=== PATIENT | male | born 1965 | race Caucasian/White ===

== ENCOUNTER 2021-02-21 11:19 | Inpatient (IN) | payer OTHER ==
[~2021-02-21] VITALS: Ht 152.4 cm; Wt 120.2 kg
[2021-02-21 11:31] VITALS: BP 116/77
[2021-02-21] MEDS ORDERED: BP MED PO (11:37)
[2021-02-21 12:11] LABS: BE 2.7 mmol/L (-2 to +3); PCO2 36.6 mmHg (35.0-45.0); pH 7.472 (7.340-7.450)
[2021-02-21 12:13] LABS: PO2 55.8 mmHg (75.0-100.0)
[2021-02-21 12:49] LABS: ABSOLUTE LYMPHOCYTES 0.6 thou/uL (0.8-5.3); ABSOLUTE MONOCYTES 0.3 thou/uL (0.0-1.2); ABSOLUTE NEUTROPHILS 4.2 thou/uL (1.6-8.1); BASOPHILS 0.3 %; HEMATOCRIT 41.3 % (42.0-52.0); HEMOGLOBIN 14.1 gm/dL (14.0-18.0); LYMPHOCYTES 12.5 %; MCH 31.7 pg (26.0-34.0); MCHC 34.2 g/dL (28.0-37.0); MCV 92.7 fL (80.0-100.0); MONOCYTES 5.7 %; MPV 7.9 fl. (7.2-11.1); NUCLEATED RBCS 0 /100WBC; PLATELET COUNT* 160 thou/uL (150-400); POLYS 81.5 %; RBC 4.45 mil/uL (4.50-6.00); RDW-CV 13.9 % (10.5-14.5); WBC 5.2 thou/uL (4.0-11.0)
[2021-02-21 15:26] LABS: ALBUMIN 3.5 g/dL (3.4-5.0); CALCIUM 7.7 mg/dL (8.5-10.1); CREATININE 1.3 mg/dL (0.6-1.3); POTASSIUM 4.4 mmol/L (3.5-5.1); TOTAL BILIRUBIN 0.4 mg/dL (<0.1-1.0); TOTAL PROTEIN 7.2 g/dL (6.4-8.2)
--- NOTE | 2021-02-21 16:17 | NUR ---
PT INFORMED COSMETICS COUNTER MANAGER THAT HE HAS CONVULSIONS WITH CONTRAST DYE. PT WILL NOT HAVE CTA PER DR. BURT'S VERBAL ORDERS. CONTRAST DYE HAS BEEN ADDED TO THE PATIENT'S ALLERGY LIST.
[2021-02-21 16:22] VITALS: BP 123/63
[2021-02-21 20:00] VITALS: BP 137/78
--- NOTE | 2021-02-21 20:39 | CON ---
[address] [address] CONSULTATION Name: GEO RENTERIA Audrey Room: [address] IN .R.#: [id number] Admission: 02/21/21 Attend Phys: Myriam Michael MD Discharge: Date of : 67 Report #: [id number] THIS REPORT FOR: cc: [facility] - Clinic physician unknown [facility] - Clinic physician unknown Flo Alberts MD ~ DATE OF CONSULTATION: 02/21/2021 REQUESTING PHYSICIAN: Myriam Michael MD INDICATION FOR CONSULTATION: COVID-19 HISTORY OF PRESENT ILLNESS: A 55-year-old gentleman with past medical history includes a history of hypertension. He also is reported to be an active smoker. He has now presented with respiratory complaints of several days' duration. He reports having had increasing shortness of breath as well as a cough without sputum production. Has had a decrease in appetite, also reduction in smell and taste. He had a COVID test performed at [facility] and reports that he was called by [facility] and told that the test came back positive. He does not report increasing swelling of lower extremities or calf pain. He does state that he has been febrile. He does report diaphoresis and weakness as well. Currently, the patient is requiring 2 liters nasal cannula to maintain O2 saturation around 92%. REVIEW OF SYSTEMS: The patient's review of systems for 12 points is negative except as mentioned above. PAST MEDICAL HISTORY: Hypertension. SOCIAL HISTORY: He has an extensive history of smoking, still smokes. No known history of heavy alcohol use or illegal drug use; however, he does state that he uses alcohol. ALLERGIES: HE REPORTS HAVING HAD CONVULSIONS WITH IV DYE. ALSO SULFONAMIDE ANTIBIOTICS. IMMUNIZATION HISTORY: He has not been vaccinated for COVID-19. FAMILY HISTORY: No pertinent family history. PHYSICAL EXAMINATION: GENERAL: He is alert, awake and oriented. He did appear to be short of breath at rest. VITAL SIGNS: Has a pulse of 77 and a blood pressure of 123/63. He is saturating 92%. He is on 2 liters nasal cannula. Respiratory rate is 19[place] [address] CONSULTATION Name: GEO RENTERIA Room: [address]#: [id number] Admission: 02/21/21 Attend Phys: Myriam Michael MD Discharge: Date of : 67 Report #: [id number] temperature was 37.1. HEENT: Head is normocephalic and atraumatic. NECK: Does not show raised JVP. CHEST: Breath sounds are bilaterally equal, but decreased. Expirations are prolonged. HEART: Regular. There is no murmur. ABDOMEN: Soft and nontender. EXTREMITIES: Lower extremities show no edema and no calf tenderness. SKIN: Dry and intact. NEUROLOGIC: Moves all extremities bilaterally equally and spontaneously with no focal deficit identified. LABORATORY DATA: The patient's lab work is in [place] and this is reviewed. COVID-19 antigen came back negative, but PCR is pending. He does have mild elevation in creatinine to 1.3. ASSESSMENT AND PLAN: 1. Acute hypoxemic respiratory failure secondary to COVID-19 and bronchospasm. We will titrate oxygen. I did not order BiPAP for now; however, we will have a low threshold of adding BiPAP while asleep if his respiratory status declines. 2. COVID-19. The patient's chest x-ray is reviewed, shows extensive bilateral infiltrates consistent with COVID-19. I will continue dexamethasone. See discussion regarding dexamethasone dose below. He does have mild elevation in LFTs and creatinine, still potential benefit of giving him remdesivir appears to outweigh risks and therefore, we will proceed as already recommended by primary service. We will also considering extensive bilateral infiltrates and risk of developing acute respiratory distress syndrome recommend that we give him Actemra as well. 3. Bronchospasm/possible underlying chronic obstructive pulmonary disease. He appears bronchospastic on my exam. Already received 125 mg of Solu-Medrol. For now, I have ordered 8 mg of dexamethasone b.i.d. and DuoNeb. May need to increase steroid further. Watch blood glucoses. 4. Pulmonary infiltrates, primarily secondary to COVID-19. I would agree with covering for secondary bacterial infections as well. He is on doxycycline and ceftriaxone. We will continue the same. More cultures and serologies are ordered. 5. Elevated D-dimer. The patient REPORTS AN ALLERGY TO IV CONTRAST DYE. There is also mild elevation in creatinine. Therefore, for now, I have ordered a perfusion scan as well as venous Dopplers and echo and held off on ordering a CTA chest. 6. Mild renal insufficiency, unknown whether this is acute or chronic. 7. Gastrointestinal prophylaxis. We will give him Protonix. 8. Clostridium difficile prophylaxis, Lactinex. 9. Gastrointestinal prophylaxis, Pepcid. [place] [address] [place] [address] CONSULTATION Name: GEO RENTERIA Room: [address] IN .R.#: [id number] Admission: 02/21/21 Attend Phys: Myriam Michael MD Discharge: Date of : 67 Report #: [id number] Thanks for this consultation. <ELECTRONICALLY SIGNED> By: Flo Alberts MD 02/21/21 2039 1538 1936Amimi Alberts MD /nt
[2021-02-21 21:57] LABS: INFLUENZA A ANTIGEN Negative (Negative); INFLUENZA B ANTIGEN Negative (Negative)
[2021-02-22 02:18] VITALS: BP 118/60
[2021-02-22 04:29] LABS: ABSOLUTE LYMPHOCYTES 0.5 thou/uL (0.8-5.3); ABSOLUTE MONOCYTES 0.2 thou/uL (0.0-1.2); ABSOLUTE NEUTROPHILS 3.8 thou/uL (1.6-8.1); BASOPHILS 0.1 %; HEMATOCRIT 37.3 % (42.0-52.0); HEMOGLOBIN 12.7 gm/dL (14.0-18.0); LYMPHOCYTES 10.5 %; MCH 31.5 pg (26.0-34.0); MCHC 34.2 g/dL (28.0-37.0); MCV 92.3 fL (80.0-100.0); MONOCYTES 5.1 %; MPV 8.3 fl. (7.2-11.1); NUCLEATED RBCS 0 /100WBC; PLATELET COUNT* 175 thou/uL (150-400); POLYS 84.3 %; RBC 4.04 mil/uL (4.50-6.00); RDW-CV 13.8 % (10.5-14.5); WBC 4.5 thou/uL (4.0-11.0)
[2021-02-22 05:01] LABS: ALBUMIN 3.1 g/dL (3.4-5.0); CALCIUM 7.9 mg/dL (8.5-10.1); CREATININE 1.1 mg/dL (0.6-1.3); MAGNESIUM 2.2 mg/dL (1.8-2.4); POTASSIUM 4.5 mmol/L (3.5-5.1); TOTAL BILIRUBIN 0.3 mg/dL (<0.1-1.0); TOTAL PROTEIN 6.5 g/dL (6.4-8.2)
[2021-02-22 06:00] VITALS: BP 125/74
--- NOTE | 2021-02-22 07:37 | NUR ---
ASSUMED CARE OF PT AFTER REPORT AT 1930. PT A&OX4. VSS. PHYSICAL ASSESSMENT COMPLETED AND CHARTED. PT O2 SAT DROPPED TO 78-85% GOING TO THE RESTROOM-INCREASED O2 TO 10L HFNC. PT TRACING SR ON TELE. MRSA & FLU SWAB, UA AND SPUTUM SPECIMEN SENT TO LAB. CALL LIGHT WITHIN REACH.
[2021-02-22 08:00] VITALS: BP 150/79
--- NOTE | 2021-02-22 08:49 | EKG ---
[place] [address] ELECTROCARDIOGRAM REPORT Name: GEO RENTERIA Room: [address] ADM IN .R.#: [id number] Admission: 02/21/21 Attend Phys: Myriam Michael, Discharge: Date of : 67 Date of Service: 02/21/21 1203 Report #: [id number] THIS REPORT FOR: //name// [facility] ED Test Date: 2021-02-21 Test Time: 12:03:25 Pat Name: GEO RENTERIA Department: Room: [facility] Gender: M Patient Observer: : 1965 Requested By: Gregg Modi Order Number: [id number] MD: Lacho Lopez Measurements Intervals [place]om Rate: 79 P: 34 UT: 155 QRS: -35 QRSD: 103 T: 20 QT: 366 QTc: 420 Interpretive Statements Sinus rhythm Left anterior fascicular block no previous ECG available for comparison Electronically Signed On 02-22-2021 8:48:33 FREIGHT AGENT by Lacho Lopez [email or web address] <ELECTRONICALLY SIGNED> By: Lacho Lopez MD, FACC 02/22/21 0848 1203 1203 Lacho Lopez MD, [facility] /EPI
--- NOTE | 2021-02-22 08:55 | NUR ---
Infection Control: Per [facility] patient has a positive Covid PCR test from 02/16/21.
[2021-02-22] MEDS ORDERED: ZIAC 5-6.25 MG1 EACH PO (10:04)
[2021-02-22 12:00] VITALS: BP 126/74
--- NOTE | 2021-02-22 12:56 | 2DMMODE ---
[place] [address] 2 D/M-MODE ECHOCARDIOGRAM Name: GEO RENTERIA Room: [address] IN [facility] [place] [facility]#: [id number] Admission: 02/21/21 Attend Phys: Myriam Michael, Discharge: Date of : 67 Date of Service: 02/22/21 1256 Report #: [id number] THIS REPORT FOR: cc: [facility] - Clinic physician unknown [facility] - Clinic physician unknown Lamont Machado MD [facility] ~ APPROVED REPORT Study performed: 02/22/2021 11:06:54 EXAM: Comprehensive 2D, Doppler, and color-flow Echocardiogram Patient Location: In-Patient Room #: [facility] Status: routine BSA: 2.25 HR: 87 bpm BP: 125/74 mmHg Rhythm: NSR Other Information Study Quality: Good Indications Dyspnea 2D Dimensions IVSd: 9.83 (7-11mm) LVOT Diam: 21.68 (18-24mm) LVDd: 50.47 mm PWd: 9.61 (7-11mm) Ascending Ao: 31.84 (22-36mm) LVDs: 24.64 (25-40mm) Aortic Root: 33.24 mm Volumes Left Atrial Volume (Systole) LA ESV Index: 28.40 mL/m2 Aortic Valve AoV Peak Vaughn.: 2.54 m/s AO Peak Gr.: 25.85 mmHg LVOT Max P.95 mmHg AO Mean Gr.: 15.22 mmHg LVOT Mean P.34 mmHg LVOT Max V: 1.50 m/s AO V2 VTI: 44.87 cm LVOT Mean V: 0.95 m/s ROXY (VTI): 2.36 cm2 LVOT V1 VTI: 28.67 [place] [address] 2 D/M-MODE ECHOCARDIOGRAM Name: GEO RENTERIA Room: [address] IN ..#: [id number] Admission: 02/21/21 Attend Phys: Myriam Michael, Discharge: Date of : 67 Date of Service: 02/22/21 1256 Report #: [id number] Mitral Valve E/A Ratio: 1.10 MV Decel. Time: 100.55 ms MV E Max Vaughn.: 0.99 m/s MV PHT: 29.16 ms MVA (PHT): 7.54 cm2 TDI E/Lateral E': 6.60 E/Medial E': 8.25 Medial E' Vaughn.: 0.12 m/s Lateral E' Vaughn.: 0.15 m/s Pulmonary Valve PV Peak Vaughn.: 1.53 m/s PV Peak Gr.: 9.34 mmHg Left Ventricle The left ventricle is normal size. There is normal LV segmental wall motion. There is normal left ventricular wall thickness. Left ventricular systolic function is normal. The left ventricular ejection fraction is within the normal range. LVEF is 65%. The left ventricular diastolic function is normal. Right Ventricle The right ventricle is normal size. The right ventricular systolic function is normal. Atria The left atrium size is normal. The right atrium size is normal. Aortic Valve The aortic valve is normal in structure. No aortic regurgitation is present. There is no aortic valvular stenosis. Mitral Valve The mitral valve is normal in structure. There is no mitral valve regurgitation noted. No evidence of mitral valve stenosis. Tricuspid Valve The tricuspid valve is normal in structure. Trace tricuspid regurgitation. Unable to assess PA pressure. Pulmonic Valve The pulmonary valve is normal in structure. There is no pulmonic [place] [address] 2 D/M-MODE ECHOCARDIOGRAM Name: SHERKAITYGEO Vent[place] Room: [address] IN [facility] [place] [facility]#: [id number] Admission: 02/21/21 Attend Phys: Myriam Michael, Discharge: Date of : 67 Date of Service: 02/22/21 1256 Report #: [id number] Great Vessels The aortic root is normal in size. IVC is not well visualized. Pericardium There is no pericardial effusion. <Conclusion> The left ventricle is normal size. There is normal left ventricular wall thickness. Left ventricular systolic function is normal. The left ventricular ejection fraction is within the normal range. LVEF is 65%. The right ventricle is normal size. The left atrium size is normal. The aortic valve is normal in structure. The mitral valve is normal in structure. The tricuspid valve is normal in structure. There is no pericardial effusion. There is normal LV segmental wall motion. <ELECTRONICALLY SIGNED> By: Lamont Machado MD, [facility] 02/22/21 1256 1256 1256 Lamont Machado MD, FACC /INF
[2021-02-22 15:40] VITALS: BP 109/61
--- NOTE | 2021-02-22 16:15 | NUR ---
Case Management Assessment Assessment completed via phone with pt's authorized contact (Tolu Ohara - [phone]). Pt resides alone in home. Pt has no history of ADL or DME support. Pt has no history of skilled, rehab, or HH services. CM to continue to follow pt.
[2021-02-22 20:00] VITALS: BP 134/64
[2021-02-23 00:03] VITALS: BP 129/64
[2021-02-23 02:06] LABS: GLYCOHEMOGLOBIN (HGB A1C) 6.5 % (4.8-5.6)
[2021-02-23 04:20] VITALS: BP 132/65
[2021-02-23 04:22] LABS: ABSOLUTE LYMPHOCYTES 0.7 thou/uL (0.8-5.3); ABSOLUTE MONOCYTES 0.7 thou/uL (0.0-1.2); ABSOLUTE NEUTROPHILS 6.2 thou/uL (1.6-8.1); BASOPHILS 0.1 %; EOSINOPHILS 0.1 %; HEMATOCRIT 38.5 % (42.0-52.0); HEMOGLOBIN 12.9 gm/dL (14.0-18.0); LYMPHOCYTES 8.8 %; MCH 31.4 pg (26.0-34.0); MCHC 33.5 g/dL (28.0-37.0); MCV 93.6 fL (80.0-100.0); MONOCYTES 8.8 %; MPV 8.2 fl. (7.2-11.1); NUCLEATED RBCS 0 /100WBC; PLATELET COUNT* 208 thou/uL (150-400); POLYS 82.2 %; RBC 4.11 mil/uL (4.50-6.00); RDW-CV 13.8 % (10.5-14.5); WBC 7.6 thou/uL (4.0-11.0)
[2021-02-23 04:37] LABS: ALBUMIN 3.1 g/dL (3.4-5.0); CALCIUM 8.1 mg/dL (8.5-10.1); CREATININE 1.1 mg/dL (0.6-1.3); MAGNESIUM 2.4 mg/dL (1.8-2.4); POTASSIUM 4.3 mmol/L (3.5-5.1); TOTAL BILIRUBIN 0.3 mg/dL (<0.1-1.0); TOTAL PROTEIN 6.5 g/dL (6.4-8.2)
[2021-02-23 09:30] VITALS: BP 127/48
[2021-02-23 12:00] VITALS: BP 127/68
[2021-02-23 17:00] VITALS: BP 127/70
--- NOTE | 2021-02-23 17:15 | NUR ---
CM FOLLOWUP PT NOT YET MEDICALLY CLEAR TO DISCHARGE. CM TO CONTINUE TO FOLLOW PT.
[2021-02-23 20:00] VITALS: BP 118/61
[2021-02-24 00:52] VITALS: BP 110/60
[2021-02-24 04:00] VITALS: BP 127/72
[2021-02-24 07:26] LABS: HEMATOCRIT 38.3 % (42.0-52.0); HEMOGLOBIN 12.8 gm/dL (14.0-18.0); MCH 31.5 pg (26.0-34.0); MCHC 33.5 g/dL (28.0-37.0); MCV 94.1 fL (80.0-100.0); MPV 8.4 fl. (7.2-11.1); RBC 4.07 mil/uL (4.50-6.00); RDW-CV 13.8 % (10.5-14.5); WBC 8.6 thou/uL (4.0-11.0)
[2021-02-24 07:34] LABS: MAGNESIUM 2.3 mg/dL (1.8-2.4); POTASSIUM 4.7 mmol/L (3.5-5.1); TOTAL BILIRUBIN 0.4 mg/dL (<0.1-1.0); TOTAL PROTEIN 6.2 g/dL (6.4-8.2)
[2021-02-24 10:00] VITALS: BP 140/82
[2021-02-24 12:27] VITALS: BP 107/72
--- NOTE | 2021-02-24 13:20 | NUR ---
Nutrition: Pt admitted with COVID. Assessed for high BMI. Wt: 265#. Pt is on 2gm Na diet - no po intake recorded. Has fluid overload. SOA better, has tremors. Meds: insulin, albuterol, remdesivir, L. acidophilus. BG 135, albumin 3. Encourage good meal intake. No other nutrition interventions needed at this time. Low nutrition risk.
[2021-02-24 16:15] VITALS: BP 112/64
--- NOTE | 2021-02-24 17:39 | NUR ---
CM FOLLOWUP PT NOT MEDICALLY CLEAR TO DC. CM TO CONTINUE TO FOLLOW PT FOR DC PLANNING SERVICES.
--- NOTE | 2021-02-24 17:40 | NUR ---
CM ASSESSMENT ASSESSMENT COMPLETED WITH PT. PT LIVES WITH IN A SINGLE STORY HOME. PT WILL NEED TRANSPORTATION ASSISTANCE UPON DISCHARGE. PT INDEPENDENT WITH ADLS. PT USES A CANE. PT HAS NO HISTORY OF HH OR SKILLED SERVICES. PT HAS A HISTORY OF REHAB SERVICES BUT UNABLE TO REPROT LOCATION OR TIMEFRAME. PT TO BE [place] WITH HH UPON DISCHARGE.
[2021-02-24 21:35] VITALS: BP 150/70
[2021-02-25 00:50] VITALS: BP 124/71
[2021-02-25 04:35] VITALS: BP 138/74
[2021-02-25 04:59] LABS: HEMATOCRIT 38.8 % (42.0-52.0); HEMOGLOBIN 12.9 gm/dL (14.0-18.0); MCH 31.3 pg (26.0-34.0); MCHC 33.2 g/dL (28.0-37.0); MCV 94.3 fL (80.0-100.0); MPV 8.5 fl. (7.2-11.1); RBC 4.11 mil/uL (4.50-6.00); RDW-CV 14.1 % (10.5-14.5)
[2021-02-25 05:18] LABS: CREATININE 1.1 mg/dL (0.6-1.3); MAGNESIUM 2.3 mg/dL (1.8-2.4); POTASSIUM 4.3 mmol/L (3.5-5.1); TOTAL BILIRUBIN 0.4 mg/dL (<0.1-1.0)
--- NOTE | 2021-02-25 05:19 | NUR ---
PT AO X4 AMBULATING IN THE ROOM WITH 2L PER NC. DENIES PAIN, MEDS ADMINISTERED PER MAR WITHOUT PROBLEM. NSR ON TELEMONITOR. PT SAT WAS 88-89 AND OXYGEN INCREASED TO 3L TO OBTAIN <90% LABS DRAWN FROM PICC WITHOUT PROBLEM. CALL LIGHT IN REACH FOR PT SAFETY
[2021-02-25 08:00] VITALS: BP 124/69
[2021-02-25 12:12] VITALS: BP 133/76
[2021-02-25 16:00] VITALS: BP 125/69
--- NOTE | 2021-02-25 17:55 | NUR ---
CM FOLLOWUP PT NOT MEDICALLY CLEAR TO DC. POSSIBLE DC HOME ON 02/28/21. NO CM NEEDS AT THIS TIME.
--- NOTE | 2021-02-25 17:57 | NUR ---
CM FOLLOWUP PT NOT MEDICALLY CLEAR TO DC. POSSIBLE DC ON 02/28/21.PT WILL NEED SAT/EX OXYGEN TEST ON DISCHARGE DATE TO DETERMINE O2 NEEDS. CM TO FOLLOW.
[2021-02-25 20:50] VITALS: BP 131/76
[2021-02-26] VITALS: BP 140/79
[2021-02-26 04:00] VITALS: BP 149/86
[2021-02-26 04:16] LABS: HEMOGLOBIN 13.1 gm/dL (14.0-18.0); MCH 31.5 pg (26.0-34.0); MCHC 33.5 g/dL (28.0-37.0); MCV 94.2 fL (80.0-100.0); MPV 8.4 fl. (7.2-11.1); NUCLEATED RBCS 0 /100WBC; PLATELET COUNT* 272 thou/uL (150-400); RBC 4.14 mil/uL (4.50-6.00); RDW-CV 13.7 % (10.5-14.5); WBC 8.2 thou/uL (4.0-11.0)
[2021-02-26 04:46] LABS: ALBUMIN 3.1 g/dL (3.4-5.0); CALCIUM 8.1 mg/dL (8.5-10.1); MAGNESIUM 2.3 mg/dL (1.8-2.4); POTASSIUM 4.2 mmol/L (3.5-5.1); TOTAL BILIRUBIN 0.5 mg/dL (<0.1-1.0); TOTAL PROTEIN 6.1 g/dL (6.4-8.2)
--- NOTE | 2021-02-26 05:03 | NUR ---
PT ALERT AND ORIENTED, UP AD YAN, 5L-O2. HAD SOME ANXIETY OVERNIGHT WITH COUGH AND SOB. ATIVAN GIVEN. HE WAS ABLE TO REST WELL AFTER IN HIS CHAIR. HE IS CONTINENT, BEEN NPO SINCE MIDNIGHT. COMPLIANT WITH CARE. LABS REVIEWED.
[2021-02-26 05:45] LABS: ABSOLUTE MONOCYTES 0.3 thou/uL (0.0-1.2); ABSOLUTE NEUTROPHILS 5.9 thou/uL (1.6-8.1); PLATELET ESTIMATE ADEQUATE
[2021-02-26 07:36] VITALS: BP 125/77
[2021-02-26 12:00] VITALS: BP 135/81
[2021-02-26 16:29] VITALS: BP 131/86
[2021-02-26 20:00] VITALS: BP 121/79
[2021-02-27] VITALS: BP 129/78
[2021-02-27 02:22] LABS: POLYS 75.7 %; RDW-CV 13.8 % (10.5-14.5)
[2021-02-27 02:31] LABS: ABSOLUTE EOSINOPHILS 0.3 thou/uL (0.0-0.7); ABSOLUTE LYMPHOCYTES 1.4 thou/uL (0.8-5.3); ABSOLUTE MONOCYTES 0.5 thou/uL (0.0-1.2); ABSOLUTE NEUTROPHILS 6.9 thou/uL (1.6-8.1); BASOPHILS 0.3 %; EOSINOPHILS 3.1 %; HEMATOCRIT 40.3 % (42.0-52.0); HEMOGLOBIN 13.6 gm/dL (14.0-18.0); LYMPHOCYTES 15.4 %; MCH 31.4 pg (26.0-34.0); MCHC 33.8 g/dL (28.0-37.0); MCV 92.9 fL (80.0-100.0); MONOCYTES 5.5 %; MPV 8.2 fl. (7.2-11.1); NUCLEATED RBCS 0 /100WBC; PLATELET COUNT* 292 thou/uL (150-400); RBC 4.34 mil/uL (4.50-6.00); WBC 9.1 thou/uL (4.0-11.0)
[2021-02-27 02:40] LABS: APTT 30.8 Seconds (25.0-31.3); INR 1.1; PROTIME 10.9 Seconds (9.20-11.50)
[2021-02-27 02:42] LABS: ALBUMIN 3.1 g/dL (3.4-5.0); CALCIUM 8.2 mg/dL (8.5-10.1); MAGNESIUM 2.4 mg/dL (1.8-2.4); POTASSIUM 4.4 mmol/L (3.5-5.1); TOTAL BILIRUBIN 0.5 mg/dL (<0.1-1.0)
[2021-02-27 04:00] VITALS: BP 125/77
--- NOTE | 2021-02-27 04:50 | NUR ---
PT HAD NO EPISODE OF ANXIETY, VERY RELAXED AND RESTED WELL THIS SHIFT, 2L-NC-O2/ UP AD YAN, ALERT AND ORIENTED. RECEIVED ALL MEDS SCHEDULED/
[2021-02-27 08:30] VITALS: BP 103/66
[2021-02-27 12:00] VITALS: BP 117/69
[2021-02-27] MEDS ORDERED: TESSALON PERLE100 MG PO (14:26)
[2021-02-27] MEDS ORDERED: PREDNISONE 10 M10 MG PO (14:27)
[2021-02-27] MEDS ORDERED: LEVOFLOXACIN500 MG PO (14:27)
[2021-02-27] MEDS ORDERED: PROAIR HFA8.5 GM INH (14:27)
[2021-02-27 18:52] VITALS: BP 117/69
--- NOTE | 2021-02-27 19:41 | NUR ---
I ASSUMED CARE OF THE PATIENT AT 0700. HE IS ALERT AND ORIENTED X4 AND IS UP WITH ASSISTANCE OF ONE. BED IS IN THE LOW LOCKED POSITION AND CALL LIGHT IS IN REACH. PATIENT NEEDS ARE MET DURING HOURLY ROUNDING. PAIN IS DENIED. REST AND EXERCISE IS COMPLETED AND PATIENT WILL NEED OXYGEN AT HOME. ORDERS ARE FAXED TO [facility]. OXYGEN TANK WAS DELIVERED FOR TRANSPORT. HE WAS UP TO THE CHAIR MOST OF THE DAY. PICC LINE IS REMOVED PRIOR TO DISCHARGE AND SITE IS C/D/I. DISCHARGE IS UNDERSTOOD.
== END 2021-02-27 19:30 | disposition home or self-care (01) | DRG 177 ==
LOC: M.ERS 11:19 → M.ORTHSURG 13:16 → M.TBA-ER 13:16 → M.ORTHSURG 16:25
PROVIDERS: Family Medicine; Internal Medicine Critical Care Medicine; ADMIT Internal Medicine; ATTEND Internal Medicine
DX: U07.1 COVID-19 (principal); J96.01 Acute respiratory failure with hypoxia; I10 Essential (primary) hypertension; F17.210 Nicotine dependence, cigarettes, uncomplicated; R25.1 Tremor, unspecified; R73.9 Hyperglycemia, unspecified; E87.70 Fluid overload, unspecified; Z88.2 Allergy status to sulfonamides